=== PATIENT | male | born 1975 | race Caucasian/White ===

== ENCOUNTER 2020-09-23 06:16 | Emergency (ER) | payer BC ==
[~2020-09-23] VITALS: Ht 170.2 cm; Wt 76.2 kg
[~2020-09-23 06:16] MED LIST: ASPIRIN81 MG; ATORVASTATIN CA20 MG PO; LISINOPRIL5 MG PO; VICOPROFEN 2001 EACH PO
[2020-09-23] MEDS ORDERED: LOSARTAN POTAS100 MG PO (06:52)
[2020-09-23] MEDS ORDERED: ATORVASTATIN CA80 MG PO (06:52)
[2020-09-23] MEDS ORDERED: AMLODIPINE BESYL5 MG PO (06:52)
[2020-09-23] MEDS ORDERED: VITAMIN D350 MCG PO (06:54)
[2020-09-23] MEDS ORDERED: ALLER-TEC10 MG PO (06:55)
[2020-09-23] MEDS ORDERED: VITAMIN C500 M5 PO (06:55)
[2020-09-23] MEDS ORDERED: NIACIN500 M1 PO (06:56)
[2020-09-23] MEDS ORDERED: FISH OIL 1,4001 EACH PO (06:56)
[2020-09-23] MEDS ORDERED: MULTI VITAMIN1 EACH PO (06:56)
[2020-09-23] MEDS ORDERED: ONDANSETRON ODT4 MG PO (07:46)
[2020-09-23] MEDS ORDERED: KETOROLAC TROME10 MG PO (07:46)
[2020-09-23] MEDS ORDERED: OXYCODONE HCL5 MG PO (07:46)
[2020-09-23] MEDS ORDERED: FLOMAX0.4 MG PO (07:46)
== END 2020-09-23 08:00 | disposition home or self-care (01) ==
LOC: ED 06:16
DX: N13.2 Hydronephrosis with renal and ureteral calculous obstruction (principal); I10 Essential (primary) hypertension; E78.00 Pure hypercholesterolemia, unspecified; Z87.442 Personal history of urinary calculi; Z88.8 Allergy status to other drugs, medicaments and biological substances; Z79.82 Long term (current) use of aspirin; Z79.899 Other long term (current) drug therapy
CPT/HCPCS: 74176; 80053; 81001; 85025; 96374; 96375; 99284-25; J1885; J2405

== ENCOUNTER 2021-03-05 10:40 | Emergency (ER) | payer OTHER, BC ==
[~2021-03-05] VITALS: Ht 170.2 cm; Wt 79.4 kg
[~2021-03-05 10:40] MED LIST changes: +ALLER-TEC10 MG PO; +AMLODIPINE BESYL5 MG PO; +ATORVASTATIN CA80 MG PO; +FISH OIL 1,4001 EACH PO; +FLOMAX0.4 MG PO; +KETOROLAC TROME10 MG PO; +LOSARTAN POTAS100 MG PO; +MULTI VITAMIN1 EACH PO; +NIACIN500 M1 PO; +ONDANSETRON ODT4 MG PO; +OXYCODONE HCL5 MG PO; +VITAMIN C500 M5 PO; +VITAMIN D350 MCG PO
[2021-03-05] MEDS ORDERED: LO-DOSE ASPIRIN81 MG PO (11:20)
== END 2021-03-05 11:36 | disposition home or self-care (01) ==
LOC: ED 10:40
DX: S06.0X9A Concussion with loss of consciousness of unspecified duration, initial encounter (principal); S01.01XA Laceration without foreign body of scalp, initial encounter; W22.8XXA Striking against or struck by other objects, initial encounter; E78.00 Pure hypercholesterolemia, unspecified; I10 Essential (primary) hypertension; Z87.891 Personal history of nicotine dependence; Z79.899 Other long term (current) drug therapy; Z79.82 Long term (current) use of aspirin
CPT/HCPCS: 99283